=== PATIENT | female | born 1965 | race Caucasian/White ===

== ENCOUNTER → 2018-05-03 | Day surgery (SDC) | payer OTHER ==
[~2018-05-03] MED LIST: IV RINGERS,LACTATED 1000ML 1,000 ML IV; PROPOFOL 20 ML IV
[2018-05-03] MEDS: IV RINGERS,LACTATED 1000ML 1,000 ML IV (16:29)
== END | disposition home or self-care (01) ==
LOC: SURG 15:46
DX: Z12.11 Encounter for screening for malignant neoplasm of colon (principal); K57.30 Diverticulosis of large intestine without perforation or abscess without bleeding; K64.0 First degree hemorrhoids; F41.9 Anxiety disorder, unspecified; J45.909 Unspecified asthma, uncomplicated; E11.9 Type 2 diabetes mellitus without complications; E78.00 Pure hypercholesterolemia, unspecified; Z83.3 Family history of diabetes mellitus; Z82.49 Family history of ischemic heart disease and other diseases of the circulatory system; Z83.79 Family history of other diseases of the digestive system; Z72.89 Other problems related to lifestyle; Z98.890 Other specified postprocedural states; Z98.51 Tubal ligation status; E66.9 Obesity, unspecified; M19.90 Unspecified osteoarthritis, unspecified site; F31.9 Bipolar disorder, unspecified; Z86.19 Personal history of other infectious and parasitic diseases; F17.200 Nicotine dependence, unspecified, uncomplicated; Z79.84 Long term (current) use of oral hypoglycemic drugs
CPT/HCPCS: 45378; J2704